=== PATIENT | male | born 1955 | race African-American/Black ===

== ENCOUNTER 2024-03-25 11:27 | Outpatient (AMB) | payer OTHER, SELFPAY ==
--- NOTE | 2024-03-25 11:35 | MHC.PC.OV ---
Vital Signs 03/25/24 11:48 Height 5 ft 3.78 in Weight 119 lb BMI 20.6 BP 118/62 Blood Pressure Location Rt brachial Position Sitting Respiration 12 Pulse 63 Pulse Source Pulse Oximeter Temp 98.2 F Temp Source Oral Pulse Oximetry (%) 98 Oxygen Delivery Method Room Air Intake Visit Reasons: Requesting physical Intake Note: New patient visit Special Education Para Professional Required: Yes Special Education Para Professional Language: Bolt Maker Name: Chris [id number] Information Interpreted: clinical only Allergies No Known Allergies [No Known Allergies*] Allergy (Verified 03/25/24 11:42) Medication List - Last Reconciled 03/25/24 by Toya Cherry PA-C No Known Home Meds Tobacco use date assessed: 03/25/24 Fall risk assessment: No Falls in past year Last assessed Fall Risk: 03/25/24 Dental Screening Dental Screen Date: 03/25/24 Did you have a dental visit in the last 12 months?: No Did you have a dental problem in the last 6 months where you did not have access to dental care?: No Was dental information given to patient?: Patient has dentist HPI Requesting physical HPI Details Patient is a 68-year-old male who presents today to establish care. [facility] No acute concerns today. Denies taking any medications. Denies any hospitalizations. 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 Pt understands and speaks Telugu CV: Blood pressure today is 1128/62. Cholesterol has been diet controlled Endo: he states he was diagnosed with t2dm 10 years ago. He states that he was on glipizide for 4 months. He does check blood sugars at home and states they are ok . He denies any known complications. His a1c today is 6.8. He has testing supplies at home. -he did not tolerate metformin (GI upset) -He has had CDE -His mother has t2dm -He last saw his ophthamologist last year- no known problems. Colonoscopy: reports having this done at [facility] 1 year ago- reports it was normal PSA: overdue AAA screen- reports having it done at 63 and it was wnl believes immunizations are utd [facility] Medical History (Updated 03/25/24 @ 12:19 by Toya Cherry PA-C) Diet-controlled type 2 diabetes mellitus Surgical History (Updated 03/25/24 @ 11:46 by Basia Donohue CMA) Hx of colonoscopy Family History (Updated 03/25/24 @ 11:45 by Basia Donohue CMA) Other FH: mental illness Social History Housing: House Patient Tobacco Use Status: Current everyday Tobacco user Tobacco use type: Cigar Years Smoked: 1 e-Cigarette/Vaping Use: Never Used service: Yes Current occupational status: employed and retired Cognitive needs: No Hearing needs: No Vision needs: No Questionnaire PHQ-9 Over the last 2 weeks, how often have you been bothered by any of the following problems? 1. Little interest or pleasure in doing things: not at all 2. Feeling down, depressed, or hopeless: not at all 3. Trouble falling or staying asleep, or sleeping too much: not at all 4. Feeling tired or having little energy: not at all 5. Poor appetite or overeating: not at all 6. Feeling bad about yourself - or that you are a failure or have let yourself or your family down: not at all 7. Trouble concentrating on things, such as reading the newspaper or watching television: not at all 8. Moving or speaking so slowly that other people could have noticed. Or the opposite - being so fidgety or restless that you have been moving around a lot more than usual: not at all 9. Thoughts that you would be better off or of hurting yourself in some way: not at all Total score: 0 Depression Screening Interpretation: Negative Depression Screening Done: Yes 64008 - PHQ-9 Billing: Yes Source: Developed by Drs. Yovani Grove, Velvet Grossman, Devante Martel and colleagues, with an educational erica from [employer]. Thrive Questionnaire Date Thrive assessed: 03/25/24 I am a: Patient What is your living situation today?: I have a steady place to live Within the past 12 months, did the food you bought not last and you didn't have the money to get more?: Never true Do you have trouble paying for medicines?: No Do you have trouble getting transportation to medical appointments?: No Do you have trouble paying your heating and electricity bill?: No Do you have trouble taking care of your child, family member or friend?: No Do you have trouble with day-to-day activities such as bathing, preparing meals, shopping, managing finances, etc.?: No Are you currently unemployed and looking for a job?: No Are you interested in more education?: No Please select the resources that you would like help with: None Currently or been in a relationship where the following occur: No concerns reported THRIVE Score: 0 AUDIT C Alcohol Use Questionnaire (AUDIT-C) 1. How often do you have a drink containing alcohol?: Monthly or less 2. How many drinks containing alcohol do you have on a typical day when you are drinking?: 1 or 2 3. How often do you have six or more drinks on one occasion?: Never Total Score: 1 LEE-7 AMB Questionnaire LEE-7 Feeling nervous, anxious, or on edge: 0 = Not at all Not being able to stop or control worryin = Not at all Worrying too much about different things: 0 = Not at all Trouble relaxin = Not at all Being so restless that it is hard to sit still: 0 = Not at all Becoming easily annoyed or irritable: 0 = Not at all Feeling afraid as if something awful might happen: 0 = Not at all Total LEE-7 score (0-4 normal; 5-9 mild; 10-14 moderate; 15-21 severe): 0 Source: Developed by Drs. Yovani Grove, Velvet Grossman, Devante Martel and colleagues, with an educational erica from [employer]. LEE-7 Assessment Billing LEE-7 Assessment Tool: LEE-7 Assessment 70239 Physical exam (Primary Care) Depression Screening Interpretation: Negative Currently or been in a relationship where the following occur: No concerns reported Const Orientation/consciousness: patient oriented x3 HENMT Ears: hearing grossly normal bilaterally and TM's normal bilaterally General nose exam: No nasal polyps present Face and sinus: Yes sinuses nontender Mouth: Normal oral and palatal mucosa present Eyes Pupils: Equal, round and reactive pupils present EOM: EOMs intact bilaterally Neck Neck: Yes full ROM and Yes no lymphadenopathy Thyroid: Thyroid normal Chest Chest palpation & inspection: normal inspection of the chest Resp Auscultation: clear to auscultation bilaterally Cardio Rate: regular rate Rhythm: regular rhythm Heart sounds: S1 normal heart sound present and S2 normal heart sound present Peripheral pulses: Peripheral pulses 2+ throughout GI Other: Soft, nontender Auscultation: normal bowel sounds Rectal Exam - Male: Yes deferred General: Yes no CVA tenderness Back/Spine/Pelvis Other: Nontender Back: no CVA tenderness Skin General skin exam: no rashes or lesions noted Neuro General: patient oriented x3, gait normal, CN's II-XI intact bilaterally and deep tendon reflexes 2+ bilaterally Cranial nerves: Yes Equal, round and reactive pupils present Motor exam (neuro): 5/5 motor strength present throughout Sensory Exam: double simultaneous stimulation for sensation normal Coordination: ybylez-nn-sada test normal and Romberg test negative Extrem General: Yes normal to inspection and Yes full ROM Psych Affect: normal affect Attitude: cooperative Thought process: Normal thought process present Thought content: Normal thought content present Insight: Good insight present (Psych) Judgement: Good judgement present (Psych) Assessment and Plan Assessment & Plan (1) Routine general medical examination at a [facility] care facility: Code(s): Z00.00 - Encounter for general adult medical examination without abnormal findings Plan: reviewed labs ordered (2) Diet-controlled type 2 diabetes mellitus: Code(s): E11.9 - Type 2 diabetes mellitus without complications Plan: f/u 3 months labs ordered advised to get an updated eye exam Orders: Orders Microalbumin, Random (w Creat) Today Z00.00 - Encounter for general adult medical examination without abnormal findings Complete Blood Count Auto Diff Today Z00.00 - Encounter for general adult medical examination without abnormal findings Comprehensive [place]. Panel Fast Today Z00.00 - Encounter for general adult medical examination without abnormal findings Lipid Panel Today Z00.00 - Encounter for general adult medical examination without abnormal findings TSH reflex Free T4 Today Z00.00 - Encounter for general adult medical examination without abnormal findings Prostate Specific Antigen Scr Today Z00.00 - Encounter for general adult medical examination without abnormal findings Islet Cell Antibody Scrn/Titer Today E11.9 - Type 2 diabetes mellitus without complications Glutamic acid decarboxylase Ab Today E11.9 - Type 2 diabetes mellitus without complications C Peptide Today E11.9 - Type 2 diabetes mellitus without complications Coding Level of Care Code New Pt Prev Care >65yr (36194) Diagnoses Routine general medical examination at a health care facility Z00.00 Diet-controlled type 2 diabetes mellitus E11.9 Additional Codes LEE-7 Assessment Billing - LEE-7 Assessment Tool: LEE-7 Assessment 44998 ([id number])
[2024-03-25 11:48] VITALS: BP 118/62; PULSE 63; RESP 12; TEMP 36.8; O2SAT 98; BMI 20.6
== END 2024-03-25 12:18 | disposition home or self-care (01) ==
PROVIDERS: PCP Physician Assistant; Visit Provider Physician Assistant
DX: Z00.00 Encounter for general adult medical examination without abnormal findings (principal); E11.9 Type 2 diabetes mellitus without complications
CPT/HCPCS: 99387

== ENCOUNTER 2024-03-26 07:32 | Outpatient (REF) | payer OTHER, SELFPAY ==
[2024-03-26 11:08] LABS: MANUAL DIFF FLAG NO
[2024-03-26 11:19] LABS: Basophils Percent Auto 0.4 % (0-2); Eosinophils Absolute Auto 0.5 X10*3/uL (0.0-0.4); Eosinophils Percent Auto 9.3 % (0-4); Imm Gran Abs Auto 0.01 X10*3/uL (0.00-0.03); Imm Gran Pct Auto 0.2 % (0.0-0.4); Lymphocytes Absolute Auto 1.5 X10*3/uL (1.2-4.9); Lymphocytes Percent Auto 28.5 % (20-40); Mean Corpuscular HGB Conc 33.3 g/dl (31.0-36.0); Mean Corpuscular Hemoglobin 27.8 pg (27.0-33.0); Mean Corpuscular Volume 83.5 fL (80.0-98.0); Mean Platelet Volume 9.9 fL (9.4-12.4); Monocytes Absolute Auto 0.4 X10*3/uL (0.1-1.2); Monocytes Percent Auto 7.8 % (2-11); Neutrophils Absolute Auto 2.9 x10*3/uL (2.0-8.3); Neutrophils Percent Auto 53.8 % (45-73); Platelet Count 219 X10*3/uL (160-400); Red Blood Count 4.31 X10*6/uL (4.60-5.80); Red Cell Distribution Width 13.2 % (11.0-16.0); White Blood Count 5.3 X10*3/uL (4.8-10.8)
[2024-03-26 11:50] LABS: Creatinine Urine 99.88 mg/dL; Microalbum/Creatinine Ratio Ur 387.4 ug/mg cr (<30)
[2024-03-26 11:53] LABS: Alanine Aminotransferase 8 U/L (0-40); Albumin Level 3.9 g/dL (3.5-5.0); Alkaline Phosphatase 63 U/L (39-117); Anion Gap 8 (12-20); Aspartate Amino Transferase 15 U/L (5-37); Bilirubin Total 0.6 mg/dL (0.0-1.0); Blood Urea Nitrogen 13 mg/dL (9-16); Carbon Dioxide 24 mmol/L (22-29); Chloride 111 mmol/L (96-108); Cholesterol 128 mg/dL (<200); Estimated Glomerular Filt Rate > 60; Glucose Fasting 105 mg/dL (60-99); HDL Cholesterol 28 mg/dL (>40); LDL Cholesterol Calculated 86 mg/dL (<100); Potassium 4.4 mmol/L (3.3-5.1); Sodium 139 mmol/L (135-145); TSH reflex Free T4 0.92 uIU/mL (0.32-4.0); Total Protein 6.8 g/dL (6.5-8.0); Triglycerides 72 mg/dL (<150)
[2024-03-26 11:58] LABS: Prostate Specific Antigen Scr 0.76 ng/mL (<0.05-4.0)
[2024-03-28 09:58] LABS: C Peptide 0.93 ng/mL (0.80-3.85)
[2024-03-31 21:58] LABS: Glutamic acid decarboxylase Ab <5 IU/mL (<5)
[2024-04-10 00:19] LABS: Islet Cell Antibody Screen NEGATIVE (NEGATIVE)
== END 2024-03-26 07:33 | disposition home or self-care (01) ==
LOC: HO.WFDLDS 07:32
PROVIDERS: Visit Provider Physician Assistant
DX: Z00.00 Encounter for general adult medical examination without abnormal findings (principal); E11.9 Type 2 diabetes mellitus without complications; Z12.5 Encounter for screening for malignant neoplasm of prostate
CPT/HCPCS: 36415; 80053; 80061; 82043; 82570; 84153; 84443; 84681; 85025; 86341

== ENCOUNTER 2024-07-07 13:34 | Outpatient (AMB) | payer OTHER, SELFPAY ==
--- NOTE | 2024-07-07 13:41 | MHC.PC.OV ---
Vital Signs 07/07/24 13:43 Height 5 ft 3.78 in Weight 119 lb 2 oz BMI 20.6 BP 98/82 Blood Pressure Location Rt brachial Position Sitting Pulse 79 Pulse Source Pulse Oximeter Pulse Oximetry (%) 98 Oxygen Delivery Method Room Air Intake Visit Reasons: dm f/u Intake Note: Follow up Angle Furnaceman Required: No Allergies No Known Allergies [No Known Allergies*] Allergy (Verified 07/07/24 13:41) Tobacco use date assessed: 03/25/24 Dental Screening Dental Screen Date: 03/25/24 HPI dm f/u HPI Details Patient is a 68-year-old male who presents today for a follow up. He has a history of anemia, diet-controlled type 2 diabetes and microalbuminuria secondary to diabetes. Navya #[id number]--raimxtlm patient does speak and understand Lithuanian. Endo: A1c today in the office is 6.3. He is not on any medications for this. He does take lisinopril 2.5 mg for the microalbuminuria. CV: bp wnl Colonoscopy: Up-to-date, done at [facility] a year ago. PSA: Up-to-date, WNL [facility] Medical History (Updated 03/26/24 @ 12:13 by Toya Cherry PA-C) Diet-controlled type 2 diabetes mellitus Surgical History (Updated 03/25/24 @ 11:46 by Basia Donohue CMA) Hx of colonoscopy Family History (Updated 03/25/24 @ 11:45 by Basia Donohue CMA) Other FH: mental illness Social History Housing: House Patient Tobacco Use Status: Current everyday Tobacco user Tobacco use type: Cigar Years Smoked: 1 e-Cigarette/Vaping Use: Never Used service: Yes Current occupational status: employed and retired Cognitive needs: No Hearing needs: No Vision needs: No Questionnaire Thrive Questionnaire Date Thrive assessed: 03/25/24 Physical exam (Primary Care) Vital Signs: Last Vital Signs Pulse 79 07/07/24 13:43 BP 98/82 07/07/24 13:43 Pulse Ox 98 07/07/24 13:43 Oxygen Delivery Method Room Air 07/07/24 13:43 BMI result Body Mass Index 20.6 Tobacco/Smoking Status: Tobacco use Status Tobacco use date assessed 03/25/24 07/07/24 13:41 Patient Tobacco Use Status Current everyday Tobacco 07/07/24 13:41 Tobacco use type Cigar 07/07/24 13:41 e-Cigarette/Vaping Use Never Used 07/07/24 13:41 Thrive Assessment: Date of Thrive Assessment Date Thrive assessed 03/25/24 07/07/24 13:41 Const Orientation/consciousness: patient oriented x3 HENMT Ears: hearing grossly normal bilaterally Neck Thyroid: Thyroid normal Lymphatic: no lymphadenopathy noted Resp Auscultation: clear to auscultation bilaterally Cardio Rate: regular rate Rhythm: regular rhythm Heart sounds: S1 normal heart sound present and S2 normal heart sound present GI Inspection: Yes normal to inspection Palpation (GI): Soft to palpation and Other GI palpation findings present (nontender, no cva tenderness) Auscultation: normoactive bowel sounds Rectal Exam - Male: Yes deferred Skin General skin exam: no rashes or lesions noted Neuro General: patient oriented x3, gait normal and no focal motor deficits Results AMB Hemoglobin A1c AMB Hemoglobin A1c 0178 % Last Edit by Basia Donohue CMA on 07/07/24 14:03 Results Reviewed Results Reviewed: Laboratory Last Values Hgb A1c (Clinic) 0178 % (4.0-6.0) H 07/07/24 13:49 Laboratory Tests 03/26/24 03/26/24 07:33 07:40 WBC 5.3 RBC 4.31 L Hgb 12.0 L Hct 36.0 L Plt Count 219 Sodium 139 Potassium 4.4 Chloride 111 H Carbon Dioxide 24 Creatinine 0.89 Estimated GFR > 60 Fasting Glucose 105 H LDL Cholesterol, Calc 86 HDL Cholesterol 28 L PSA Screen 0.76 TSH 0.92 Urine Creatinine 99.88 Urine Microalbumin 387.0 Microalb/Creat Ratio 387.4 H Coding Level of Care Code Est Pt Level 4 (10336) Complex EM visit Add On G2211 Diagnoses Microalbuminuria due to type 2 diabetes mellitus E11.29; R80.9 Diet-controlled type 2 diabetes mellitus E11.9 Anemia D64.9 Assessment & Plan Assessment & Plan (1) Microalbuminuria due to type 2 diabetes mellitus: Code(s): E11.29 - Type 2 diabetes mellitus with other diabetic kidney complication; R80.9 - Proteinuria, unspecified Category: Medical Plan: Continue lisinopril (2) Diet-controlled type 2 diabetes mellitus: Code(s): E11.9 - Type 2 diabetes mellitus without complications Category: Medical Plan: A1c within range of a prediabetic. Encouraged him to continue with a healthy lifestyle modifications. (3) Anemia: Code(s): D64.9 - Anemia, unspecified Category: Medical Plan: Labs ordered. Reminded him to complete. Orders: Orders Comprehensive [place]. Panel Fast Today D64.9 - Anemia, unspecified, E11.29 - Type 2 diabetes mellitus with other diabetic kidney complication, E11.9 - Type 2 diabetes mellitus without complications, R80.9 - Proteinuria, unspecified Hemoglobin A1c Today D64.9 - Anemia, unspecified, E11.29 - Type 2 diabetes mellitus with other diabetic kidney complication, E11.9 - Type 2 diabetes mellitus without complications, R80.9 - Proteinuria, unspecified AMB Hemoglobin A1c Today E11.29 - Type 2 diabetes mellitus with other diabetic kidney complication, R80.9 - Proteinuria, unspecified Microalbumin, Random (w Creat) Today D64.9 - Anemia, unspecified, E11.29 - Type 2 diabetes mellitus with other diabetic kidney complication, E11.9 - Type 2 diabetes mellitus without complications, R80.9 - Proteinuria, unspecified
[2024-07-07 13:43] VITALS: BP 98/82; PULSE 79; O2SAT 98; BMI 20.6
== END 2024-07-07 14:13 | disposition home or self-care (01) ==
LOC: HO.HMCFM 13:34
PROVIDERS: PCP Physician Assistant; Visit Provider Physician Assistant
DX: E11.29 Type 2 diabetes mellitus with other diabetic kidney complication (principal); R80.9 Proteinuria, unspecified; D64.9 Anemia, unspecified

== ENCOUNTER → 2024-07-07 13:34 | Outpatient (BNVA) | payer OTHER, SELFPAY | PROVIDERS: PCP Physician Assistant; Visit Provider Physician Assistant | DX: E11.29 Type 2 diabetes mellitus with other diabetic kidney complication (principal); D64.9 Anemia, unspecified; R80.9 Proteinuria, unspecified | CPT/HCPCS: 83036; 99212 ==